=== PATIENT | female | born 1940 | race Caucasian/White ===

== ENCOUNTER 2023-05-03 20:17 | Emergency (ER) | payer OTHER, MEDICAID ==
[~2023-05-03] VITALS: Ht 162.6 cm; Wt 65.0 kg
[2023-05-03 20:22] VITALS: BP 150/78
[2023-05-03] MEDS ORDERED: IPRATROPIUM BROMIDE (0.02%) 0.5MG/2.5ML NEB HHN STA (20:27)
[2023-05-03] MEDS ORDERED: ALBUTEROL (0.083%) 2.5MG/3ML NEB HHN STA (20:27)
[2023-05-03] MEDS ORDERED: PREDNISONE 20MG TABLET PO STA (20:27)
[2023-05-03] MEDS: PREDNISONE 20MG TABLET PO NR (22:25)
[2023-05-03] MEDS: IPRATROPIUM BROMIDE (0.02%) 0.5MG/2.5ML NEB HHN NR (22:42)
[2023-05-03] MEDS: ALBUTEROL (0.083%) 2.5MG/3ML NEB HHN NR (22:42)
[2023-05-03 22:43] VITALS: PULSE 88; RESP 20; O2SAT 98
[2023-05-04] MEDS ORDERED: AZIT250T12 MT (01:54)
[2023-05-04] MEDS ORDERED: ALBU6.7H15 INH (01:54)
[2023-05-04] MEDS ORDERED: PRED10TA MT (01:54)
[2023-05-04] MEDS ORDERED: AZITHROMYCIN 500 MG TABLET PO ONE (02:00)
[2023-05-04] MEDS: PREDNISONE 20MG TABLET PO NR (02:40)
[2023-05-04] MEDS: ALBUTEROL (0.083%) 2.5MG/3ML NEB HHN NR (02:40)
[2023-05-04 02:41] VITALS: PULSE 88; RESP 20; TEMP 98.4
[2023-05-04] MEDS: IPRATROPIUM BROMIDE (0.02%) 0.5MG/2.5ML NEB HHN NR (02:41)
== END 2023-05-04 02:44 | disposition home or self-care (01) ==
LOC: ER 20:17
DX: R05.9 Cough, unspecified (principal); R09.81 Nasal congestion; J02.9 Acute pharyngitis, unspecified; I10 Essential (primary) hypertension; Z20.822 Contact with and (suspected) exposure to COVID-19
CPT/HCPCS: 99284; 71045; 87426; 87804 ×2; 94640; J7512 ×2; C9803